=== PATIENT | female | born 1975 | race Caucasian/White ===

== ENCOUNTER → 2019-12-28 | Outpatient (CLI) | payer OTHER ==
[2013-03-08 14:22] VITALS: BP 123/75
[~2019-12-28] MED LIST: ANTIVERT 25MG25 MG PO; CIMZIA200 MG/ML SC; ZOFRAN ODT8 MG PO
== END ==
LOC: RAD 08:09
DX: K76.0 Fatty (change of) liver, not elsewhere classified (principal)